=== PATIENT | female | born 1985 | race African-American/Black ===

== ENCOUNTER 2019-09-29 18:11 | Emergency (ER) | payer MEDICAID ==
[~2019-09-29] VITALS: Ht 157.5 cm; Wt 77.7 kg
[2019-09-29 18:18] VITALS: Ht 157.5 cm; Wt 77.7 kg
[2019-09-29] MEDS ORDERED: VOLTAREN75 MG PO (19:43)
[2019-09-29] MEDS ORDERED: ZANAFLEX4 MG PO (19:43)
[2019-09-29 20:14] VITALS: BP 124/84
== END 2019-09-29 20:14 | disposition home or self-care (01) ==
LOC: D.ER 18:11
DX: M25.512 Pain in left shoulder (principal)